=== PATIENT | female | born 1965 | race Two or more races ===

== ENCOUNTER 2017-11-06 00:17 | Emergency (ER) | payer OTHER ==
[~2017-11-06] VITALS: Ht 149.9 cm; Wt 70.3 kg
[2017-11-06] MEDS ORDERED: Ketorolac 30mg Inj IV ONE (01:00)
[2017-11-06] MEDS ORDERED: Metoclopramide 10mg/2ml Inj IVP ONE (01:00)
[2017-11-06 01:18] LABS: BASOPHILS % (AUTO) 0.7 % (0.0-2.0); EOSINOPHILS % (AUTO) 1.8 % (0.0-3.0); LYMPHOCYTES % (AUTO) 11.8 % (20.0-45.0); MEAN CORPUSCULAR HEMOGLOBIN 29.5 PG (27.0-31.0); MEAN CORPUSCULAR HGB CONC 32.8 G/DL (32.0-36.0); MEAN CORPUSCULAR VOLUME 90 FL (80-99); MEAN PLATELET VOLUME 8.9 FL (6.5-10.1); MONOCYTES % (AUTO) 4.9 % (1.0-10.0); NEUTROPHILS % (AUTO) 80.9 % (45.0-75.0); PLATELET COUNT 272 K/UL (150-450); RED BLOOD COUNT 4.95 M/UL (4.20-5.40); RED CELL DISTRIBUTION WIDTH 12.1 % (11.6-14.8); WHITE BLOOD COUNT 12.5 K/UL (4.8-10.8)
[2017-11-06 01:23] VITALS: BP 133/63
[2017-11-06 01:30] LABS: KETONES,URINE NEGATIVE (NEGATIVE); LEUKOCYTE ESTERASE ,URINE 2+ (NEGATIVE); NITRITE,URINE NEGATIVE (NEGATIVE); PH,URINE 6 (4.5-8.0); PROTEIN,URINE 3+ (NEGATIVE); UROBILINOGEN,URINE NORMAL MG/DL (0.0-1.0)
[2017-11-06 01:43] LABS: REFLEX LACTIC ACID YES OR NO YES
[2017-11-06 01:43] LABS: APPEARANCE,URINE SLIGHTLY CLOUDY; BACTERIA,URINE FEW /HPF; SQUAMOUS EPITHELIAL CELL,UR FEW /LPF (NONE/OCC); WBC,URINE 20-30 /HPF (0 - 2)
[2017-11-06 01:54] LABS: ANION GAP 9 mmol/L (5-15); CALCIUM 10.4 MG/DL (8.5-10.1); CARBON DIOXIDE 31 MMOL/L (21-32); CHLORIDE 100 MMOL/L (98-107); CREATININE 1.4 MG/DL (0.55-1.30); GLOMERULAR FILTRATION RATE 39.6 mL/min (>60); POTASSIUM 3.7 MMOL/L (3.5-5.1); SODIUM 139 MMOL/L (136-145)
[2017-11-06 02:00] LABS: ALANINE AMINOTRANSFERASE 33 U/L (12-78); ASPARTATE AMINO TRANSFERASE 21 U/L (15-37); LIPASE 168 U/L (73-393); TOTAL PROTEIN 9.1 G/DL (6.4-8.2)
[2017-11-06] MEDS ORDERED: cefTRIAXone 1 GM in NS 55 ML IVPB ONE (02:00)
[2017-11-06] MEDS ORDERED: NITROFURANTOIN100 M2 ORAL (02:13)
--- NOTE | 2017-11-06 02:13 | Emergency Room Report ---
History of Present Illness General Chief Complaint: Nausea, Vomiting, and Diarrhea Source: Patient Present Illness HPI 52-year-old female with episode tonight of "whole body cramps." States she checked her sugar before bed and was over 500, so she took 10 units of insulin that she usually takes at night. glucose check here is 100. She denies abdominal pain, chest pain, shortness of breath, fever or chills, cough or urinary complaints. feels well otherwise Allergies: Coded Allergies: No Known Allergies (Unverified , 11/06/17) Patient History Past Medical History: DM Past Surgical History: none Pertinent Family History: none Social History: Denies: smoking, alcohol use, drug use Now: No Immunizations: UTD Reviewed Nursing Documentation: PMH: Agreed, PSxH: Agreed Nursing Documentation-PMH Past Medical History: No History, Except For Hx Hypertension: Yes Hx Diabetes: Yes Review of Systems All Other Systems: negative except mentioned in HPI Physical Exam Vital Signs Date Time Temp Pulse Resp B/P (MAP) Pulse Ox O2 Delivery O2 Flow Rate FiO2 11/06/17 00:25 97.2 88 16 127/73 97 Room Air Sp02 EP Interpretation: reviewed, normal General Appearance: normal inspection, well appearing, no apparent distress, alert, GCS 15, non-toxic Head: normocephalic, atraumatic Eyes: bilateral eye PERRL, bilateral eye EOMI ENT: normal ENT inspection, hearing grossly normal, normal voice Neck: normal inspection, full range of motion, supple, no bony tend Respiratory: normal inspection, lungs clear, normal breath sounds, no respiratory distress, no retraction, no wheezing Cardiovascular #1: regular rate, rhythm, no edema Gastrointestinal: normal inspection, normal bowel sounds, non tender, soft, no guarding, no hernia Genitourinary: no CVA tenderness Musculoskeletal: normal inspection, back normal, normal range of motion, Darcy' s Sign negative Neurologic: normal inspection, alert, oriented x3, responsive, automatic dry starch operator III-XII nml as tested, speech normal Psychiatric: normal inspection, judgement/insight normal, mood/affect normal Skin: normal inspection, normal color, no rash Medical Decision Making Diagnostic Impression: Primary Impression: UTI (urinary tract infection) Qualified Codes: N30.00 - Acute cystitis without hematuria Additional Impression: Weakness ER Course 52-year-old female with whole body cramps is likely generalized weakness d/t elevated glucose Labs show normal glucose, no anion gap, normal potassium UA significant for a UTI Given IV antibiotics here Labs also show mild [place], likely due to dehydration from diabetes Was given IV fluid Feels much better Unlikely ACS given troponin is within normal limits an EKG is normal sinus rhythm as described above We'll discharge ER course: Patient has remained stable during ED stay. Patient is to be discharged to home. Prescriptions given are macrobid Patient is instructed to follow up with their primary care doctor within 5 days. Strict return precautions discussed with patient such as fever, chills, worsening/severe pain, nausea, vomiting, which may indicate severe illness. Patient verbalizes understanding and agrees with plan. Please note that this Emergency Department Report was dictated using [employer] roll operator technology software, occasionally this can lead to erroneous entry secondary to interpretation by the dictation equipment EKG Diagnostic Results Rate: normal Rhythm: NSR ST Segments: no acute changes ASA given to the pt in ED: No Rhythm Strip Diag. Results EP Interpretation: yes Rate: 83 Rhythm: NSR, no PVC's, no ectopy Last Vital Signs Date Time Temp Pulse Resp B/P (MAP) Pulse Ox O2 Delivery O2 Flow Rate FiO2 11/06/17 01:23 97.2 80 12 133/63 100 Room Air Status: improved Disposition: HOME, SELF-CARE Referrals: [facility],REFERRING (PCP) KODI OROZCO M.D. Nov 06, 2017 02:13
[2017-11-06 02:27] VITALS: BP 130/60
--- NOTE | 2017-11-11 11:04 | Cardiology Report ---
APPROVED REPORT EKG Measurement Heart [id number] Normal sinus rhythm Cannot rule out Anterior infarct, age undetermined Abnormal ECG
== END 2017-11-06 02:31 | disposition home or self-care (01) ==
LOC: EMR 00:30
DX: N30.00 Acute cystitis without hematuria (principal); R53.1 Weakness; E11.9 Type 2 diabetes mellitus without complications; I10 Essential (primary) hypertension
CPT/HCPCS: 36415; 80053; 81003; 82962; 83605; 83690; 84484; 85025; 87086; 87181; 93005; 96361; 96374; 96375; 99284; J0696; J1885; J2765